=== PATIENT | female | born 1935 | race Caucasian/White ===

== ENCOUNTER 2021-09-27 08:57 | Outpatient (CLI) | payer MEDICARE, OTHER | END 2021-09-27 08:58 | disposition home or self-care (01) | LOC: CSHMRI 08:57 | PROVIDERS: ATTEND Anesthesiology Pain Medicine | DX: M48.02 Spinal stenosis, cervical region (principal); G95.29 Other cord compression | CPT/HCPCS: 72141 ==

== ENCOUNTER 2021-10-03 09:31 | Outpatient (CLI) | payer MEDICARE, OTHER | END 2021-10-03 09:32 | disposition home or self-care (01) | LOC: CSHMAMMO 09:31 | PROVIDERS: ATTEND Internal Medicine Hematology & Oncology | DX: Z12.31 Encounter for screening mammogram for malignant neoplasm of breast (principal); Z98.890 Other specified postprocedural states; Z85.3 Personal history of malignant neoplasm of breast; Z80.3 Family history of malignant neoplasm of breast | CPT/HCPCS: 77063; 77067 ==

== ENCOUNTER 2022-01-13 10:43 | Outpatient (CLI) | payer MEDICARE, OTHER | END 2022-01-13 10:44 | disposition home or self-care (01) | LOC: CSHULT 10:43 | PROVIDERS: ATTEND Internal Medicine Cardiovascular Disease | DX: E04.1 Nontoxic single thyroid nodule (principal); E04.2 Nontoxic multinodular goiter | CPT/HCPCS: 76536 ==

== ENCOUNTER 2022-04-11 09:37 | Outpatient (CLI) | payer MEDICARE, OTHER ==
[~2022-04-11 09:37] MED LIST: Magnevist 469MG/ML 20 ML VIAL ONE
== END 2022-04-11 09:38 | disposition home or self-care (01) ==
LOC: CSHMRI 09:37
PROVIDERS: ATTEND Otolaryngology Plastic Surgery within the Head & Neck
DX: H81.09 Meniere's disease, unspecified ear (principal)
CPT/HCPCS: 70553; 82565

== ENCOUNTER 2022-10-05 09:36 | Outpatient (CLI) | payer MEDICARE, OTHER | END 2022-10-05 09:37 | disposition home or self-care (01) | LOC: CSHMAMMO 09:36 | PROVIDERS: ATTEND Internal Medicine Hematology & Oncology | DX: Z12.31 Encounter for screening mammogram for malignant neoplasm of breast (principal); Z98.890 Other specified postprocedural states; Z85.3 Personal history of malignant neoplasm of breast; Z80.3 Family history of malignant neoplasm of breast | CPT/HCPCS: 77063; 77067 ==

== ENCOUNTER 2024-01-17 09:50 | Outpatient (CLI) | payer MEDICARE | END 2024-01-17 09:51 | disposition home or self-care (01) | LOC: CSHMAMMO 09:50 | PROVIDERS: ATTEND Family Medicine | DX: Z12.31 Encounter for screening mammogram for malignant neoplasm of breast (principal); M85.88 Other specified disorders of bone density and structure, other site; M81.0 Age-related osteoporosis without current pathological fracture; Z80.3 Family history of malignant neoplasm of breast; Z85.3 Personal history of malignant neoplasm of breast; Z98.890 Other specified postprocedural states | CPT/HCPCS: 77063; 77067; 77080 ==

== ENCOUNTER 2024-04-23 08:34 | Outpatient (CLI) | payer MEDICARE, BC | END 2024-04-23 08:35 | disposition home or self-care (01) | LOC: CSHMRI 08:34 | PROVIDERS: ATTEND Anesthesiology Pain Medicine | DX: M48.02 Spinal stenosis, cervical region (principal); M47.812 Spondylosis without myelopathy or radiculopathy, cervical region | CPT/HCPCS: 72141 ==

== ENCOUNTER 2025-01-19 08:50 | Outpatient (CLI) | payer MEDICARE, BC | END 2025-01-19 08:51 | disposition home or self-care (01) | LOC: CSHMAMMO 08:50 | PROVIDERS: ATTEND Family Medicine | DX: Z12.31 Encounter for screening mammogram for malignant neoplasm of breast (principal); Z80.3 Family history of malignant neoplasm of breast; Z85.3 Personal history of malignant neoplasm of breast; Z98.890 Other specified postprocedural states | CPT/HCPCS: 77063; 77067 ==